=== PATIENT | female | born 1990 | race Caucasian/White ===

== ENCOUNTER 2022-10-21 13:24 | Emergency (ER) | payer OTHER ==
[~2022-10-21] VITALS: Ht 157.5 cm; Wt 57.2 kg
[2022-10-21 13:30] VITALS: BP_SYST 120; PULSE 115; RESP 18; TEMP 99.4; O2SAT 96
--- NOTE | 2022-10-21 13:35 | NUR ---
TRIAGED AND BROUGHT BACK TO BED #4, REPORT GIVEN TO TIANA
[2022-10-21] MEDS ORDERED: ONDANSETRON 4 MG ODT TAB PO ONE (14:00)
[2022-10-21] MEDS ORDERED: DEXAMETHASONE SOD PHOSPHATE 10 MG/ML VIAL PO ONE (14:00)
[2022-10-21] MEDS ORDERED: KETOROLAC TROMETHAMINE 30 MG VIAL IM ONE (14:00)
[2022-10-21] MEDS ORDERED: ACETAMINOPHEN 500 MG TABLET PO ONE (14:00)
--- NOTE | 2022-10-21 14:27 | NUR ---
Per Dr. Lopez, start with the order of Zofran and IM Toradol first. Patient verified name and . Patient denies allergies. Patient agreed to administration of Toradol and Zofran prior to administration. Patient toelrated well.
--- NOTE | 2022-10-21 14:37 | NUR ---
MD DR GOTTI AT BEDSIDE
[2022-10-21] MEDS ORDERED: ACET325T53 PO (14:45)
[2022-10-21] MEDS ORDERED: NIRM1TAB PO (14:45)
[2022-10-21] MEDS ORDERED: ONDA-8 TL (14:45)
[2022-10-21] MEDS ORDERED: IBUP-1969 PO (14:45)
--- NOTE | 2022-10-21 14:45 | NUR ---
SCHEDULED MEDS GIVEN AND TOLERATED WELL.
[2022-10-21 15:08] VITALS: BP_SYST 118; PULSE 102; RESP 18; TEMP 99.1; O2SAT 97
--- NOTE | 2022-10-21 15:12 | NUR ---
Patient given written and verbal discharge instructions and verbalizes understanding. ER MD discussed with patient the results and treatment provided. Patient in stable condition. ID arm band removed. IV catheter removed intact and dressing applied, no active bleeding. Rx of TYLENOL, IBUPROFEN, PAXLOVID, ZOFRAN given. Patient educated on pain management and to follow up with PMD. Pain Scale 0/10. Opportunity for questions provided and answered. Medication side effect fact sheet provided.
== END 2022-10-21 15:12 | disposition home or self-care (01) ==
LOC: SED 13:24
DX: U07.1 COVID-19 (principal); R50.9 Fever, unspecified; R11.2 Nausea with vomiting, unspecified; J02.9 Acute pharyngitis, unspecified; Z79.899 Other long term (current) drug therapy
CPT/HCPCS: 99284; 81025; 96372; Q0162; J1100; J1885